=== PATIENT | female | born 1945 | race Caucasian/White ===

== ENCOUNTER → 2016-02-18 | Outpatient (CLI) | payer OTHER, MEDICARE ==
[~2016-02-18] MED LIST: ACET1TAB84 PO; BUPRTAB51 PO; CALCTAB5 PO; CHOL2000 PO; CLR10 PO; FLAX100024 PO; METO50TA16 PO; MISCCAP80 PO; RSTOPS OP; SIMV40TA2 PO; TOPI200T14 PO
--- NOTE | 2016-02-18 10:57 | Discharge Instructions ---
Discharge Instructions Procedure Procedure Date: Feb 18, 2016. Reason for visit: Left Calcifications. Discharge Discharge Date: Feb 18, 2016. Discharge Diagnosis: status post breast biopsy Instructions Activity Recommendations: Additional Limitations (see below) Return to School/Work: no limitations Recommended Home Diet: No Limitations Provider Instructions: ACTIVITY RECOMMENDATIONS: * No lifting, pushing, pulling or exercising the affected side for three days. RETURN TO SCHOOL/WORK: * You may return to work/school after the procedure, but do not perform any strenuous activities for 24 to 48 hours. MEDICATIONS: * Tylenol (two 325 mg) every four to six hours if needed for mild pain (if not allergic to Tylenol). DIET: * Resume previous diet. SPECIAL CARE INSTRUCTIONS: * Keep biopsy site dry for 24 hours. May shower after 24 hours, but do not soak (bathe) incision. * May remove Tegaderm (plastic patch) tomorrow AFTER showering. * Leave the steri-strips on for one week. Allow the steri-strips to fall off by themselves. If not off after one week, you may remove them. You may place a Bandaid crosswise over the strips, if desired. * Apply ice 10 minutes on and 10 minutes off as needed. * Wear a bra at bedtime to sleep more comfortably for 2-3 days. * Your referring physician should have the results after approximately 5 to 7 business days. * Call for unusual bleeding, fever, drainage, etc or if you have any questions call during normal business hours or after hours call Dr Juarez, [phone]. FOLLOW UP VISIT: Follow-up with Referring Physician as scheduled. Allergies Coded Allergies: Azithromycin (Verified Allergy, Unknown, ., 09/20/14) Cephalosporins (Verified Allergy, Unknown, ., 09/20/14) Codeine (Verified Allergy, Unknown, ., 09/20/14) Erythromycin (Verified Allergy, Unknown, ., 09/20/14) Sulfa Drugs (Verified Allergy, Unknown, ., 09/20/14) Shannon Nicholas Recommendations: Call your doctor if: * Temperature above 101 degrees * Pain not relieved by pain medicine ordered * There is increased drainage or redness from any incision * You have any unanswered questions or concerns. Your Doctors Instructions noted above were prepared by provider Camryn Juarez. Patient Signature Section: Patient Instructions Signature Page Kimberly Rascon Patient (or Guardian) Signature/Date: I have read and understand the instructions given to me by my caregivers. Caregiver/RN/Doctor Signature/Date: The above-named patient and/or guardian has received patient instructions on this date. + Original Patient Signature Page (only) stays with chart. Please make copy for patient.
--- NOTE | 2016-02-18 12:39 | MAMMOGRAPHY REPORT ---
STEREOTACTIC GUIDED BIOPSY LEFT BREAST: 02/18/2016 CLINICAL HISTORY: Left lower inner quadrant calcifications. PATIENT CONSENT: The procedure, risks, benefits, and alternatives of stereotactic biopsy with clip p nisa were discussed with the patient, and verbal and written consent was obtained. A timeout wa s performed immediately prior to the procedure. PROCEDURE DESCRIPTION: With stereotactic guidance, aseptic technique, and lidocaine as a local anest hetic (1% lidocaine to anesthetize the skin and 1% lidocaine with epinephrine to anesthetize the gianna per tissues), the area of concern was sampled multiple times with a 9-gauge vacuum-assisted biopsy n eedle ([employer]). The path of approach was caudocranial. The specimen radiograph demonstrates c alcifications to be present in the samples. A metallic marker clip was placed at the biopsy site. This was confirmed on postprocedure mammograms. Direct pressure was applied at the biopsy site and hemostasis was readily achieved. The patient tolerated the procedure without complication. She was given wound care instructions. COMPARISON: Comparison is made to exams dated: 02/06/2016 mammogram, 02/06/2016 ultrasound, 016 mammogram, 01/20/2015 mammogram - [facility], 01/18/2014 mammogram, and 3 mammogram. IMPRESSION: STEREOTACTIC GUIDED BIOPSY Stereotactic biopsy of indeterminate calcifications in the left lower inner quadrant, with clip plac pedro. The patient will receive pathology results from her referring physician. Camryn Juarez M.D. /:02/18/2016 10:58:44 Blank Driller: Sonali Rosales, [facility]
--- NOTE | 2016-02-18 12:39 | MAMMOGRAPHY REPORT ---
UNILATERAL LEFT DIGITAL DIAGNOSTIC MAMMOGRAM: 02/18/2016 CLINICAL HISTORY: Status post stereotactic biopsy of left lower inner quadrant calcifications. TECHNIQUE: Postprocedural left CC and ML views were obtained. COMPARISON: Comparison is made to exams dated: 02/06/2016 mammogram, 01/20/2015 mammogram - [facility], 01/18/2014 mammogram, 01/19/2013 mammogram, and 01/18/2012 mammogram. BREAST COMPOSITION: There are scattered areas of fibroglandular density in the left breast. FINDINGS: A new biopsy marker clip is seen within the left lower inner quadrant at the site of the biopsied calcifications. No significant postbiopsy hematoma is seen. IMPRESSION: POST PROCEDURE IMAGING FOR MARKER PLACEMENT New biopsy marker clip status post stereotactic biopsy of left lower inner quadrant calcifications. Pathology results are pending. Approximately 10% of breast cancers are not detected with mammography. A negative mammographic repor t should not delay biopsy if a clinically suggestive mass is present. Camryn Juarez M.D. ah/:02/18/2016 11:17:39 Social Work Program Coordinator: Sonali Rosales, [facility] BI-RADS Code: Post Procedure Imaging For Marker Placement
== END | disposition home or self-care (01) ==
LOC: C.MAMM 10:17
PROVIDERS: ATTEND Obstetrics & Gynecology
DX: D24.2 Benign neoplasm of left breast (principal); R92.0 Mammographic microcalcification found on diagnostic imaging of breast

== ENCOUNTER → 2016-04-23 | Outpatient (CLI) | payer OTHER, MEDICARE ==
[~2016-04-23] VITALS: Ht 167.6 cm; Wt 194.2 kg
[2016-04-23 15:14] VITALS: BP 126/56; PULSE 76; Ht 167.6 cm; Wt 194.2 kg
== END | disposition home or self-care (01) ==
LOC: C.NEUR 14:53
PROVIDERS: ATTEND Internal Medicine Pulmonary Disease
DX: G47.31 Primary central sleep apnea (principal)

== ENCOUNTER → 2016-05-13 | Outpatient (CLI) | payer OTHER, MEDICARE | END | disposition home or self-care (01) | LOC: C.PAPS 10:06 | PROVIDERS: ATTEND Obstetrics & Gynecology | DX: Z01.419 Encounter for gynecological examination (general) (routine) without abnormal findings (principal) ==

== ENCOUNTER → 2016-06-30 | Outpatient (CLI) | payer OTHER, MEDICARE | END | disposition home or self-care (01) | LOC: C.RDSM 14:54 | PROVIDERS: ATTEND Physical Medicine & Rehabilitation Sports Medicine | DX: Z96.651 Presence of right artificial knee joint (principal) ==

== ENCOUNTER → 2017-03-16 | Outpatient (CLI) | payer OTHER, MEDICARE ==
--- NOTE | 2017-03-17 14:33 | MAMMOGRAPHY REPORT ---
BILATERAL DIGITAL SCREENING MAMMOGRAM TOMOSYNTHESIS WITH CAD: 03/16/2017 CLINICAL HISTORY: Routine screening. Patient has no complaints. TECHNIQUE: Breast tomosynthesis in addition to standard 2D mammography was performed. Current study was also evaluated with a Computer Aided Detection (CAD) system. COMPARISON: Comparison is made to exams dated: 02/18/2016 mammogram, 02/18/2016 stereotactic biopsy, ultrasound, 02/06/2016 mammogram, and 01/20/2015 mammogram - [facility]. BREAST COMPOSITION: There are scattered areas of fibroglandular density in both breasts. FINDINGS: No suspicious masses, calcifications, or areas of architectural distortion are noted in ei ther breast. There has been no significant interval change compared to prior exams. There are stable postsurgical changes in bilateral breasts. Linear scar markers denote bilateral scars. Bilateral a symmetries and benign-appearing masses as well as scattered bilateral benign-appearing calcifications are not significantly changed. A biopsy marker clip is noted within the left breast from prior ster eotactic biopsy. IMPRESSION: ACR BI-RADS CATEGORY 2: BENIGN There is no mammographic evidence of malignancy. A 1 year screening mammogram is recommended. The pa tient will receive written notification of the results. Approximately 10% of breast cancers are not detected with mammography. A negative mammographic report should not delay biopsy if a clinically suggestive mass is present. Camryn Juarez M.D. ah/:03/16/2017 15:53:16 Telemedicine Physician: Promise HARRISON)([place]), [facility] letter sent: Normal 1/2 BI-RADS Code: ACR BI-RADS Category 2: Benign
== END | disposition home or self-care (01) ==
LOC: C.MAMM 14:37
PROVIDERS: ATTEND Obstetrics & Gynecology
DX: Z12.31 Encounter for screening mammogram for malignant neoplasm of breast (principal)

== ENCOUNTER → 2017-05-16 | Outpatient (CLI) | payer OTHER, MEDICARE | END | disposition home or self-care (01) | LOC: C.MAMM 15:37 | PROVIDERS: ATTEND Obstetrics & Gynecology | DX: M85.89 Other specified disorders of bone density and structure, multiple sites (principal) ==

== ENCOUNTER → 2017-05-16 | Outpatient (CLI) | payer OTHER, MEDICARE | END | disposition home or self-care (01) | LOC: C.PAPS 14:47 | PROVIDERS: ATTEND Obstetrics & Gynecology | DX: Z12.4 Encounter for screening for malignant neoplasm of cervix (principal) ==

== ENCOUNTER → 2017-06-17 | Outpatient (CLI) | payer OTHER, MEDICARE ==
[~2017-06-17] VITALS: Ht 167.6 cm; Wt 32.9 kg
[2017-06-17 14:56] VITALS: BP 127/79; PULSE 67; Ht 167.6 cm; Wt 32.9 kg
== END | disposition home or self-care (01) ==
LOC: C.NEUR 14:35
PROVIDERS: ATTEND Internal Medicine Pulmonary Disease
DX: G47.33 Obstructive sleep apnea (adult) (pediatric) (principal); G47.31 Primary central sleep apnea

== ENCOUNTER 2020-09-17 20:37 | Observation (INO) ==
[2020-09-17 21:19] LABS: Basophils # (auto) 0.08 K/uL (0-0.2); Eosinophils # (auto) 0.25 K/uL (0-0.5); Eosinophils % (auto) 3.2 %; Hematocrit (blood only) 40.1 % (37-47); Immature Granulocytes # (auto) 0.02 K/uL (0.00-0.02); Immature Granulocytes % (auto) 0.3 %; Lymphocytes # (auto) 1.65 K/uL (1.2-3.4); Lymphocytes % (auto) 21.3 %; Mean Corpuscular Hemoglobin 30.3 pg (25-34); Mean Corpuscular Hgb Conc 32.4 g/dL (32-36); Mean Corpuscular Volume 93.5 fL (80-100); Mean Platelet Volume 11.4 fL (7.4-10.4); Monocytes # (auto) 0.85 K/uL (0.11-0.59); Neutrophils # (auto) 4.91 K/uL (1.4-6.5); Neutrophils % (auto) 63.2 %; Platelet Count 227 K/uL (130-400); RDW Coefficient of Variation 13.6 % (11.5-14.5); RDW Standard Deviation 46.4 fL (36.4-46.3); Red Blood Count 4.29 M/uL (4.2-5.4); White Blood Count 7.76 K/uL (4.8-10.8)
[2020-09-17 21:29] LABS: Partial Thromboplastin Ratio 0.9
--- NOTE | 2020-09-17 21:37 | Emergency Department Note ---
History of Present Illness General Chief Complaint: Illness Stated Complaint: SOB, NAUSEA, CHEST PAIN Time Seen by Provider: 09/17/20 20:53 Source: patient Mode of arrival: ambulatory Limitations: no limitations History of Present Illness Provider Complaint: shortness of breath and chest pain Onset (ago): minute(s) Severity: moderate Maximum Pain Intensity: 5 Relieved By: + nothing Exacerbated By: + nothing Context: no recent illness Associated symptoms: + chest pain; no fever, no wheezing, no sputum production, no palpitations, no hemoptysis, no syncope or no abdominal pain Treatment prior to arrival: none Home Medications Medication Instructions Recorded Confirmed Type bupropion HCl 300 mg 24 hr tablet, 300 mg PO QAM 12/26/18 09/17/20 History extended release cyclosporine 0.05 % eye drops in a 1 drops OP Q12H 12/26/18 09/17/20 History dropperette (Restasis) mecobalamin (vitamin B12) 1,000 1,000 mcg PO DAILY 07/18/19 09/17/20 History mcg chewable tablet rosuvastatin 5 mg tablet 5 mg PO QPM 07/18/19 09/17/20 History cromolyn 5.2 mg/spray (4 %) nasal 1 sprays INTNAS DAILY ml 07/20/19 09/17/20 History spray (Nasalcrom) amlodipine 10 mg tablet 10 mg PO DAILY 07/01/20 09/17/20 History lisinopril 20 mg tablet 20 mg PO DAILY 07/01/20 09/17/20 History Lactobacillus acidophilus 10 10,000 mmu cells PO DAILY 09/17/20 09/17/20 History billion cell capsule (Probiotic) Nmn 125 mg PO DAILY 09/17/20 09/17/20 History acetaminophen 650 mg 650 mg PO Q12H PRN 09/17/20 09/17/20 History tablet,extended release ascorbic acid (vitamin C) 1,000 mg 1 g PO DAILY 09/17/20 09/17/20 History tablet (Vitamin C) cholecalciferol (vitamin D3) 125 125 mcg PO DAILY 09/17/20 09/17/20 History mcg (5,000 unit) tablet (Vitamin D3) levothyroxine 75 mcg tablet 75 mcg PO DAILYBB 09/17/20 09/17/20 History nettle-pygeum africanum 300 mg-25 1 cap PO DAILY 09/17/20 09/17/20 History mg capsule topiramate 200 mg tablet 200 mg PO QPM 09/17/20 09/17/20 History Allergies Allergy/AdvReac Type Severity Reaction Status Date / Time Cephalosporins Allergy Unknown Hives Verified 09/17/20 22:15 codeine Allergy Unknown Unknown Verified 09/17/20 22:15 erythromycin base Allergy Unknown Unknown Verified 09/17/20 22:15 Sulfa (Sulfonamide Allergy Unknown Hives Verified 09/17/20 22:15 Antibiotics) Influenza Virus Vaccines Allergy Anaphylaxis Verified 09/18/20 01:30 oxycodone AdvReac Severe hallucinati Verified 09/17/20 22:15 on azithromycin AdvReac Nausea Verified 09/18/20 01:31 Past Med/Surg History Medical History Adrenal gland cyst Bipolar disorder Breast cancer 10 YEARS AGO - LUMPECTOMY + RADIATION Chest pain at rest Dyslipidemia Family history of ischemic heart disease GERD (gastroesophageal reflux disease) Hearing deficit BL GARCIA Hepatic cyst History of skin cancer 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 HLD (hyperlipidemia) HTN (hypertension) HTN (hypertension) Hypothyroidism Kidney stones Limb alert care status Restricted RUE Osteoarthritis Osteopenia Sleep apnea CPAP Surgical History H/O lithotripsy Right URS, laser lithotripsy, and stent placement 08/13/19 History of colonoscopy History of D&C History of partial hysterectomy History of removal of cyst benign cysts removed from breast x 3 History of right knee joint replacement History of tonsillectomy Status post breast lumpectomy Rt Family History Family/Other Coronary heart disease Cancer Hypertension Other No family history of adverse response to anesthesia Social History Smoking Status: Never smoker Second Hand Exposure: No; Hx Alcohol Use: No Hx Substance Use: No Preferred Language: Arabic Communication Ability: Effective It Programmer Required: No Beliefs That Will Affect Care: None marital status: Current Living Situation: Alone current occupational status: retired Other Information That Helps Us Care for You: No Feels Safe at Home: Yes Safety Concerns: Feels Safe At This Time Assistive Devices: CPAP Physical Exam Vital Signs: Vital Signs - 24 hr 09/17/20 20:37 09/17/20 20:49 09/17/20 21:24 Temperature 36.5 C Temperature Source Temporal Artery Sc an Pulse Rate 117 H 91 H Respiratory Rate 18 15 Respiratory Effort / Characteristics Non-Labored Sponta neous Respiratory Depth Normal Respiratory Patter n Regular Blood Pressure 160/87 H 154/76 H Blood Pressure Araseli n 111 102 Blood Pressure Pos ition Sitting Pulse Oximetry 98 100 99 Oxygen Delivery Me thod Room Air Room Air Sepsis Recent Feve r Within 48 Hours No Sepsis New/Unexpla ined Change in Men louis Status No Sepsis Action Take n by Nursing No Action Required 09/17/20 21:30 09/17/20 22:30 09/17/20 23:00 Temperature Temperature Source Pulse Rate 93 H 96 H 104 H Respiratory Rate 15 17 13 Respiratory Effort / Characteristics Respiratory Depth Respiratory Patter n Blood Pressure 137/84 137/78 151/81 H Blood Pressure Araseli n 101 97 104 Blood Pressure Pos ition Pulse Oximetry 99 98 99 Oxygen Delivery Me thod Sepsis Recent Feve r Within 48 Hours Sepsis New/Unexpla ined Change in Men louis Status Sepsis Action Take n by Nursing 09/17/20 23:30 Temperature Temperature Source Pulse Rate 101 H Respiratory Rate 17 Respiratory Effort / Characteristics Respiratory Depth Respiratory Patter n Blood Pressure 149/83 H Blood Pressure Araseli n 105 Blood Pressure Pos ition Pulse Oximetry 99 Oxygen Delivery Me thod Sepsis Recent Feve r Within 48 Hours Sepsis New/Unexpla ined Change in Men louis Status Sepsis Action Take n by Nursing Physical Exam: GENERAL: Mildly anxious in appearance, wearing a mask. EYE EXAM: Normal conjunctiva. PERRL, no anisocoria and EOM's grossly intact w/o pain. NECK: Supple, no nuchal rigidity, no adenopathy, non-tender. No signs of meningismus. LUNGS: Clear to auscultation. Normal chest wall mechanics. HEART: NSR, no MRG. ABDOMEN: Abdomen soft, non-tender, normo-active bowel sounds, no masses, no rebound or guarding. BACK: No CVA TTP. SKIN: No rashes and no bruising. UPPER EXTREMITIES: Upper extremities are grossly normal. LOWER EXTREMITIES: Grossly normal, no edema. Negative Homans' sign bilaterally. NEURO EXAM: A&O x3, cranial nerves II-XII grossly intact, normal speech, moves all 4 extremities on command w/o issue. Course Course Cardiac monitoring: An order was placed for continuous cardiac monitoring. The monitor shows a rate of 83 with sinus rhythm. Administered Medications Discontinued Medications Amlodipine Besylate (Amlodipine Besylate 5 Mg Tab) 10 mg PO DAILY LAUREN Stop: 10/18/20 08:59 Last Admin: 09/18/20 08:19 Dose: 10 mg Documented by: [id number] Ascorbic Acid (Ascorbic Acid 500 Mg Tab) 1,000 mg PO DAILY LAUREN Stop: 10/18/20 08:59 Last Admin: 09/18/20 08:20 Dose: Not Given Documented by: [id number] Bupropion HCl (Bupropion Xl 300 Mg Tabcr) 300 mg PO QAM LAUREN Stop: 10/18/20 08:59 Last Admin: 09/18/20 08:18 Dose: 300 mg Documented by: [id number] Cyanocobalamin (Cyanocobalamin 500 Mcg Tablet (Vitamin B-12)) 1,000 mcg PO DAILY [facility]; Protocol Stop: 10/18/20 08:59 Last Admin: 09/18/20 08:21 Dose: Not Given Documented by: [id number] Enoxaparin Sodium (Enoxaparin Inj 40 Mg/0.4 Ml Syr) 40 mg SQ QAM LAUREN Stop: 10/18/20 08:59 Last Admin: 09/18/20 08:21 Dose: Not Given Documented by: [id number] Ioversol (Optiray 320 125ml) 119 ml IV ONCE ONE Stop: 09/17/20 21:53 Last Admin: 09/17/20 21:52 Dose: 119 ml Documented by: [id number] Lactobacillus Acidoph/Casei/Rhamnos (Advanced Probiotic 1250 Mg Capsule) 2 cap PO DAILY [facility]; Protocol Stop: 10/18/20 08:59 Last Admin: 09/18/20 08:21 Dose: Not Given Documented by: [id number] Levothyroxine Sodium (Levothyroxine Sodium 75 Mcg Tablet) 75 mcg PO DAILYBB [facility] Stop: 10/18/20 06:29 Last Admin: 09/18/20 05:58 Dose: 75 mcg Documented by: [id number] Lisinopril (Lisinopril 20 Mg Tab) 20 mg PO NOW STA Stop: 09/18/20 01:54 Last Admin: 09/18/20 02:05 Dose: 20 mg Documented by: [id number] Miscellaneous (Cromolyn: Order Awaiting Action) 1 ea N/A QS LAUREN Stop: 10/18/20 07:59 Last Admin: 09/18/20 08:15 Dose: Not Given Documented by: [id number] Miscellaneous (Restasis: Order Awaiting Action) 1 ea N/A QS LAUREN Stop: 10/18/20 07:59 Last Admin: 09/18/20 08:16 Dose: Not Given Documented by: [id number] Rosuvastatin Calcium (Rosuvastatin Calcium 5 Mg Tab) 5 mg PO NOW STA Stop: 09/18/20 01:53 Last Admin: 09/18/20 02:05 Dose: 5 mg Documented by: [id number] Topiramate (Topiramate 100 Mg Tab) 200 mg PO NOW STA Stop: 09/18/20 01:53 Last Admin: 09/18/20 02:05 Dose: 200 mg Documented by: [id number] Vitamin D (Cholecalciferol 1,000 Units 25 Mcg Tab) 5,000 units PO DAILY LAUREN Stop: 10/18/20 08:59 Last Admin: 09/18/20 08:21 Dose: Not Given Documented by: [id number] Medical Decision Making Differential Diagnosis Reactive airway disease, pneumonia, pneumothorax, COPD, CHF, infections, cardiac ischemia, pulmonary embolism, musculoskeletal, gastrointestinal, as well as other pathologies. Medical Records Attestation: I reviewed the patient's medical records. Home Medications Current Medication List: was personally reviewed by me Laboratory Data Attestation: I reviewed the patient's lab results. Result diagrams: 09/18/20 05:18 09/18/20 05:18 Lab Results 09/17/20 09/17/20 09/17/20 Range/Units 20:58 20:58 20:58 WBC 7.76 (4.8-10.8) K/uL RBC 4.29 (4.2-5.4) M/uL Hgb 13.0 (12.0-16.0) g/dL Hct 40.1 (37-47) % MCV 93.5 (80-100) fL MCH 30.3 (25-34) pg MCHC 32.4 (32-36) g/dL RDW Std Deviation 46.4 H (36.4-46.3) fL RDW Coeff of Himanshu 13.6 (11.5-14.5) % Plt Count 227 (130-400) K/uL MPV 11.4 H (7.4-10.4) fL Immature Gran % (Auto) 0.3 % Neut % (Auto) 63.2 % Lymph % (Auto) 21.3 % Jay % (Auto) 11.0 % Eos % (Auto) 3.2 % Baso % (Auto) 1.0 % Neut # (Auto) 4.91 (1.4-6.5) K/uL Lymph # (Auto) 1.65 (1.2-3.4) K/uL Jay # (Auto) 0.85 H (0.11-0.59) K/uL Eos # (Auto) 0.25 (0-0.5) K/uL Baso # (Auto) 0.08 (0-0.2) K/uL Immature Gran # (Auto) 0.02 (0.00-0.02) K/uL APTT 24.0 (21.0-31.0) Seconds PTT Ratio 0.9 Sodium 140 (136-145) mmol/L Potassium (3.5-5.1) mmol/L Chloride 112 H (98-107) mmol/L Carbon Dioxide 24 (21-32) mmol/L Anion Gap 5.0 (3-11) BUN 17 (7-18) mg/dl Creatinine 0.75 (0.6-1.2) mg/dl Est Cr Clr Drug Dosing Not Reportable Est GFR ( Amer) 91.7 ml/min Est GFR (Non-Af Amer) 79.1 ml/min BUN/Creatinine Ratio 22.5 H (10-20) Glucose 93 (70-99) mg/dl Calcium 9.0 (8.5-10.1) mg/dl Total Bilirubin 0.2 (0.2-1) mg/dl AST (15-37) U/L ALT 22 (12-78) U/L Alkaline Phosphatase 129 H (45-117) U/L Troponin I < 0.015 (0-0.045) ng/ml Total Protein 7.7 (6.4-8.2) gm/dl Albumin 3.7 (3.4-5.0) gm/dl Globulin 4.0 (2.5-4.0) gm/dl Albumin/Globulin Ratio 0.9 (0.9-2) Lipase 138 (73-393) U/L COVID-19 Eval Order SARS-CoV-2 (PCR) (Negative) 09/17/20 09/17/20 Range/Units 23:36 23:36 WBC (4.8-10.8) K/uL RBC (4.2-5.4) M/uL Hgb (12.0-16.0) g/dL Hct (37-47) % MCV (80-100) fL MCH (25-34) pg MCHC (32-36) g/dL RDW Std Deviation (36.4-46.3) fL RDW Coeff of Himanshu (11.5-14.5) % Plt Count (130-400) K/uL MPV (7.4-10.4) fL Immature Gran % (Auto) % Neut % (Auto) % Lymph % (Auto) % Jay % (Auto) % Eos % (Auto) % Baso % (Auto) % Neut # (Auto) (1.4-6.5) K/uL Lymph # (Auto) (1.2-3.4) K/uL Jay # (Auto) (0.11-0.59) K/uL Eos # (Auto) (0-0.5) K/uL Baso # (Auto) (0-0.2) K/uL Immature Gran # (Auto) (0.00-0.02) K/uL APTT (21.0-31.0) Seconds PTT Ratio Sodium (136-145) mmol/L Potassium (3.5-5.1) mmol/L Chloride (98-107) mmol/L Carbon Dioxide (21-32) mmol/L Anion Gap (3-11) BUN (7-18) mg/dl Creatinine (0.6-1.2) mg/dl Est Cr Clr Drug Dosing Est GFR ( Amer) ml/min Est GFR (Non-Af Amer) ml/min BUN/Creatinine Ratio (10-20) Glucose (70-99) mg/dl Calcium (8.5-10.1) mg/dl Total Bilirubin (0.2-1) mg/dl AST (15-37) U/L ALT (12-78) U/L Alkaline Phosphatase (45-117) U/L Troponin I (0-0.045) ng/ml Total Protein (6.4-8.2) gm/dl Albumin (3.4-5.0) gm/dl Globulin (2.5-4.0) gm/dl Albumin/Globulin Ratio (0.9-2) Lipase (73-393) U/L COVID-19 Eval Order Covid19 at [facility] SARS-CoV-2 (PCR) NEGATIVE (Negative) Imaging Data Radiologist's Impression: Chest CTA 09/17/20 20:54 CT ANGIOGRAPHY OF THE CHEST, PULMONARY EMBOLUS PROTOCOL CLINICAL HISTORY: Chest Pain, eval for PE COMPARISON STUDY: Chest radiograph September 02, 2015. TECHNIQUE: Following IV administration of 119 mL of Optiray, helical axial images of the chest were obtained utilizing the pulmonary embolus protocol. Maximal intensity projections and sagittal and coronal reformats were viewed on an independent 3D workstation. IV contrast was administered without complication. Automated exposure control was utilized for the study. A dose lowering technique was utilized adhering to the principles of ALARA. CT DOSE: 398.78 mGy.cm FINDINGS: No pulmonary emboli are identified. There is no thoracic aortic dissection. Size of the heart is normal. There is no pericardial effusion. No enlarged thoracic lymph nodes are noted. There is evidence for previous a granulomatous process with calcified thoracic lymph nodes and calcified granulomas within the lungs. There is a small hiatal hernia. Biapical scarring is noted. There is no pneumothorax or pleural effusion. There is no consolidation to suggest pneumonia. A left adrenal nodule is unchanged since prior CT. This is benign. IMPRESSION: 1. No pulmonary emboli identified. 2. No acute process within the chest. 3. Small hiatal hernia. ACT 112: Negative or not required by law. Electronically signed by: Km Tineo M.D. 09/18/2020 7:30 AM ECG Data Attestation: I personally reviewed and interpreted this ECG as follows: Interpretation: Sinus tachycardia, rate of 108, normal intervals, normal axis, no obvious ST changes MDM Narrative Patient was seen due to concern for chest pain and shortness of breath. The patient does have some exertional symptoms although the chest pain is left-sided sharp and not currently present. The patient does admit to feeling anxious. Patient is a family history of heart attack in her mother before the age of 65. Patient is a non-smoker no history of DVT or PE. No recent surgeries or procedures. Blood works obtained along with a CT angiography of the chest. EKG with no obvious signs of ischemia. Patient blood work is grossly unremarkable with a negative troponin. Patient's CT does not show any obvious PE although it is slightly motion degraded. Initial troponin negative. Patient did undergo an ambulatory trial and was quite dyspneic although not hypoxic. Given this concern I did recommend the patient stay for further observation and treatment. The patient is amenable to this. I did speak with the on-call hospitalist Dr. Lau and the patient was admitted to the medicine service. Impression & Plan Dyspnea, Chest pain Discharge Plan Visit Data Chief Complaint: Illness Stated Complaint: SOB, NAUSEA, CHEST PAIN ED Provider: Tapan Wong Discharge Problem: Dyspnea, Chest pain Patient Disposition: Admitted As Inpatient Discharge Instructions Interventions: ED Discharge Assessment Last Done: 09/18/20 01:06
[2020-09-17 21:42] LABS: Alanine Aminotransferase 22 U/L (12-78); Albumin Globulin Ratio 0.9 (0.9-2); Albumin Level 3.7 gm/dl (3.4-5.0); Alkaline Phosphatase 129 U/L (45-117); BUN Creatinine Ratio 22.5 (10-20); Bilirubin,Total 0.2 mg/dl (0.2-1); Blood Urea Nitrogen 17 mg/dl (7-18); Carbon Dioxide 24 mmol/L (21-32); Chloride 112 mmol/L (98-107); Est GFR (African American) 91.7 ml/min; Est GFR (Non-African American) 79.1 ml/min; Glucose 93 mg/dl (70-99); Lipase 138 U/L (73-393); Sodium 140 mmol/L (136-145); Total Protein 7.7 gm/dl (6.4-8.2); Troponin I < 0.015 ng/ml (0-0.045)
[2020-09-17] MEDS ORDERED: OPTIRAY 320 125ml IV ONE (21:52)
--- NOTE | 2020-09-18 00:55 | History and Physical Report ---
DATE OF ADMISSION: 09/17/2020. CHIEF COMPLAINT: Chest pain and shortness of breath. HISTORY OF PRESENT ILLNESS: A 74-year-old female with past medical history significant for hyperlipidemia; history of multinodular goiter; history of Daphne's thyroiditis; obstructive sleep apnea, on CPAP; irritable bowel syndrome; GERD; history of actinic keratosis; bipolar II disorder; history of carcinoma of the breast; history of nonmelanoma skin cancer, who lives alone, presents with chest pain and shortness of breath. Initially, she had some shortness of breath while ambulating and she sat on the chair and around 7:30 p.m. she noticed left-sided chest pain, some pressure-like feeling of about 5/10 in severity, no radiation. Around 8:30 p.m., she called her daughter and she was brought into the hospital. Currently, the patient is chest pain free. In the ER, they tried to ambulate her and again she felt short of breath. CT of the chest was done, there was no PE. Because of ongoing symptoms, called for admission. Currently, resting comfortably and hemodynamically stable. Currently, no shortness of breath. When she had symptoms, she felt nausea, that has improved now. She has some mild headache, no dizziness, no blurred visions, no earache. Has some mild runny nose, but that is chronic. Has chronic dry cough on and off for several months. She has worked up for her cough with Prilosec for a couple of months, didn't helped, and she states she also had endoscopy, which was also unremarkable. Denies any abdominal pain. Normal bowel movements. No blood in the stool or black stools. She says she is currently frequently micturating, but denies any hematuria or burning micturition. She has chronic mild swelling in the lower extremity. Since she had her right knee arthroplasty, she is using a cane to ambulate. Appetite is okay. No dysphagia. ALLERGIES: CEPHALOSPORINS, CODEINE, ERYTHROMYCIN BASE, SULFA ANTIBIOTICS, AZITHROMYCIN, OXYCODONE, INFLUENZA VIRUS WHOLE VACCINE, ZITHROMAX. PAST MEDICAL HISTORY: As mentioned above. PAST SURGICAL HISTORY: Knee arthroplasty, colonoscopy, EGD, partial hysterectomy, and removal of lingual tonsil. MEDICATIONS: The patient is on Tylenol Arthritis 650 mg p.o. q. 12 hours p.r.n., amlodipine 10 mg p.o. daily, ascorbic vitamin C 1 gram p.o. daily, bupropion extended release 300 mg p.o. daily, vitamin D 125 mcg p.o. daily, cromolyn nasal spray daily, cyclosporine eyedrops q. 12 hours, probiotic 1 capsule daily, levothyroxine 75 mcg p.o. daily, lisinopril 20 mg p.o. daily, vitamin B12 1000 mcg p.o. daily, Topamax 200 mg p.o. daily, Crestor 5 mg p.o. at bedtime. FAMILY HISTORY: Significant for mother had breast cancer, father has heart disorder, mother has heart attack. SOCIAL HISTORY: Currently lives alone. Daughter lives close by. No smoking. Alcohol rarely. No drug use. REVIEW OF SYSTEMS: As per HPI. Rest of review of systems is negative. PHYSICAL EXAMINATION: GENERAL: The patient is of moderate build, not in acute distress. VITAL SIGNS: Temperature 36.5, pulse 102, respiratory rate 21, blood pressure 135/72, oxygen 98% on room air. HEENT: Pupils equal, round and reactive to light. Oral mucosa moist. NECK: No JVD. No neck masses. No carotid bruits. CARDIOVASCULAR: S1 and S2 heard, regular rate and rhythm. No murmur, no gallop. RESPIRATORY SYSTEM: Normal AP diameter. No accessory muscle use. No wheezing, no crackles. ABDOMEN: Soft, bowel sounds present, nontender, no distention. CENTRAL NERVOUS SYSTEM: Cranial nerves II-XII grossly intact, nonfocal. EXTREMITIES: Some pedal edema present, no erythema seen. LABORATORY DATA: WBC 7.7, hemoglobin 13, hematocrit 40.1, platelets 227. APTT 24. Sodium 140, chloride 112, CO2 of 24, BUN 17, creatinine 0.75, serum glucose 93, calcium 9, total bilirubin 0.2, ALT 22, alkaline phosphatase 129. Troponin I less than 0.015. Lipase 138. IMAGING DATA: CT of the chest, no PE on the preliminary report. EKG: Sinus tachycardia at a rate of 108, possible left atrial enlargement, Q- waves in the lateral leads. ASSESSMENT AND PLAN: This is a 74-year-old female who presents with chest pain. 1. Chest pain: Rule out acute coronary syndrome. EKG shows Q-waves in lateral leads. Troponin is negative. Currently asymptomatic. She also had shortness of breath on exertion and CT of chest was unremarkable. We will follow the final report of the CT of chest. We will follow serial enzymes, echocardiogram. Keep her n.p.o. and consult cardiology in the a.m. for further recommendation. Monitor in the [facility]. 2. History of hypertension: Continue her amlodipine, lisinopril. We will monitor the blood pressure. 3. History of bipolar disorder: Continue her Topamax and bupropion. 4. Hyperlipidemia: Continue statin. 5. Hypothyroidism: Continue Synthroid. 6. Obstructive sleep apnea: On CPAP at bedtime. 7. Deep venous thrombosis prophylaxis: Sequential compression devices for now. DISPOSITION: Observation in [facility]. PT/OT prior to discharge. Social service to help with discharge planning. Job ID: [id number]
[2020-09-18] MEDS ORDERED: ACETAMINOPHEN 325 MG TAB PO PRN (01:26)
[2020-09-18] MEDS ORDERED: NITROGLYCERIN SL 0.4 MG/TAB TAB SL PRN (01:26)
[2020-09-18] MEDS ORDERED: ROSUVASTATIN CALCIUM 5 MG TAB PO STA (01:52)
[2020-09-18] MEDS ORDERED: TOPIRAMATE 100 MG TAB PO STA (01:52)
[2020-09-18] MEDS ORDERED: lisinopril 20 MG TAB PO STA (01:53)
[2020-09-18 06:23] LABS: Basophils # (auto) 0.04 K/uL (0-0.2); Basophils % (auto) 0.5 %; Eosinophils # (auto) 0.24 K/uL (0-0.5); Eosinophils % (auto) 3.2 %; Hemoglobin 14.6 g/dL (12.0-16.0); Immature Granulocytes # (auto) 0.03 K/uL (0.00-0.02); Immature Granulocytes % (auto) 0.4 %; Lymphocytes # (auto) 1.63 K/uL (1.2-3.4); Mean Corpuscular Hgb Conc 31.7 g/dL (32-36); Mean Corpuscular Volume 91.5 fL (80-100); Mean Platelet Volume 12.2 fL (7.4-10.4); Monocytes # (auto) 0.89 K/uL (0.11-0.59); Neutrophils # (auto) 4.58 K/uL (1.4-6.5); Neutrophils % (auto) 61.9 %; Platelet Count 164 K/uL (130-400); RDW Coefficient of Variation 13.6 % (11.5-14.5); RDW Standard Deviation 44.9 fL (36.4-46.3); Red Blood Count 5.03 M/uL (4.2-5.4); White Blood Count 7.41 K/uL (4.8-10.8)
[2020-09-18] MEDS ORDERED: LEVOTHYROXINE SODIUM 75 MCG TABLET PO SCH (06:30)
[2020-09-18 06:33] LABS: BUN Creatinine Ratio 31.3 (10-20); Blood Urea Nitrogen 18 mg/dl (7-18); Calcium 9.2 mg/dl (8.5-10.1); Carbon Dioxide 22 mmol/L (21-32); Chloride 113 mmol/L (98-107); Creatinine Clr Calc Pharmacy 95.9 ml/min; Est GFR (Non-African American) 91.4 ml/min; Glucose 96 mg/dl (70-99); Magnesium 2.7 mg/dl (1.8-2.4); Potassium 3.7 mmol/L (3.5-5.1); Sodium 140 mmol/L (136-145)
[2020-09-18 06:38] LABS: Troponin I < 0.015 ng/ml (0-0.045)
--- NOTE | 2020-09-18 07:31 | CT Scan Report ---
CT ANGIOGRAPHY OF THE CHEST, PULMONARY EMBOLUS PROTOCOL CLINICAL HISTORY: Chest Pain, eval for PE COMPARISON STUDY: Chest radiograph September 02, 2015. TECHNIQUE: Following IV administration of 119 mL of Optiray, helical axial images of the chest were o btained utilizing the pulmonary embolus protocol. Maximal intensity projections and sagittal and cor onal reformats were viewed on an independent 3D workstation. IV contrast was administered without co mplication. Automated exposure control was utilized for the study. A dose lowering technique was ut ilized adhering to the principles of ALARA. CT DOSE: 398.78 mGy.cm FINDINGS: No pulmonary emboli are identified. There is no thoracic aortic dissection. Size of the he art is normal. There is no pericardial effusion. No enlarged thoracic lymph nodes are noted. There is evidence for previous a granulomatous process with calcified thoracic lymph nodes and calcified gran ulomas within the lungs. There is a small hiatal hernia. Biapical scarring is noted. There is no pneu mothorax or pleural effusion. There is no consolidation to suggest pneumonia. A left adrenal nodule i s unchanged since prior CT. This is benign. IMPRESSION: 1. No pulmonary emboli identified. 2. No acute process within the chest. 3. Small hiatal hernia. ACT 112: Negative or not required by law. Electronically signed by: Km Tineo M.D. 09/18/2020 7:30 AM
[2020-09-18 07:46] VITALS: O2SAT 99
--- NOTE | 2020-09-18 07:59 | Hospitalist Progress Note ---
Date of Service September 18, 2020 Assessment & Plan (1) Chest pain at rest: (2) Family history of ischemic heart disease: (3) Dyslipidemia: (4) HTN (hypertension): Plan: This is a 74-year-old female who presents with chest pain. 1. Chest pain: Rule out acute coronary syndrome. EKG shows Q-waves in lateral leads. Troponin x2 negative. Currently asymptomatic. She also had shortness of breath on exertion and CT of chest was unremarkable. Echocardiogram obtained -left ventricle is normal in size. There is borderline concentric LVH. The left ventricular wall motion is normal. EF 65 to 70%. Diastolic dysfunction, grade 2. There is no significant valvular disease. Cardiology also consulted for further recommendation. Per cardiology, patient has atypical chest discomfort possibly secondary to costochondritis. Cardiac work-up unremarkable so far in the hospital. Recommend outpatient nuclear stress test 2. History of hypertension: Continue her amlodipine, lisinopril. We will monitor the blood pressure. 3. History of bipolar disorder: Continue her Topamax and bupropion. 4. Hyperlipidemia: Continue statin. 5. Hypothyroidism: Continue Synthroid. 6. Obstructive sleep apnea: On CPAP at bedtime. 7. Deep venous thrombosis prophylaxis: Sequential compression devices for now. DISPOSITION: Observed in [place]. Plan to discharge home today, close follow- up with PCP and cardiology. Admission and Anticipated Discharge Date Admission Date: September 17, 2020 Subjective Patient seen in follow-up of chest pain currently resting in bed in no acute distress denies any chest pain, chest discomfort or shortness of breath reports that yesterday she had significant discomfort especially with movement No fevers, chills, dizziness or lightheadedness Seen by cardiology, discussed cardiac work-up in the hospital and outpatient follow-up Patient is eager to be discharged Review of Systems Review of Systems: All systems reviewed & are unremarkable except as noted in Subjective Physical Exam Physical Exam: GENERAL: The patient is of moderate build, not in acute distress. HEENT: NC/AT, Pupils equal, round and reactive to light. Oral mucosa moist. NECK: No JVD. No neck masses. No carotid bruits. CARDIOVASCULAR: S1 and S2 heard, regular rate and rhythm. No murmur, no gallop. RESPIRATORY: Normal AP diameter. No accessory muscle use. No wheezing, no crackles. ABDOMEN: Soft, bowel sounds present, nontender, no distention. NEURO: Alert oriented x3, no facial symmetry, speech fluent, moves extremities EXTREMITIES: Some pedal edema present, no erythema seen. Results & Data Results & Data ([facility]) Vital Signs (Past 12 Hours) Vital Signs Temp Pulse Pulse Resp BP BP BP 09/18/20 07:50 79 09/18/20 07:00 36.7 C 80 18 121/67 09/18/20 01:35 36.8 C 102 H 18 158/89 H 09/18/20 01:29 36.8 C 102 H 18 158/89 H 09/18/20 01:00 98 H 19 146/69 H 09/18/20 00:30 101 H 20 134/67 09/18/20 00:00 102 H 21 135/72 09/17/20 23:30 101 H 17 149/83 H 09/17/20 23:00 104 H 13 151/81 H 09/17/20 22:30 96 H 17 137/78 09/17/20 21:30 93 H 15 137/84 09/17/20 21:24 09/17/20 20:49 91 H 15 154/76 H 09/17/20 20:37 36.5 C 117 H 18 160/87 H Pulse Ox 09/18/20 07:50 09/18/20 07:00 99 09/18/20 01:35 98 09/18/20 01:29 98 09/18/20 01:00 97 09/18/20 00:30 99 09/18/20 00:00 98 09/17/20 23:30 99 09/17/20 23:00 99 09/17/20 22:30 98 09/17/20 21:30 99 09/17/20 21:24 99 09/17/20 20:49 100 09/17/20 20:37 98 Laboratory Results 09/18/20 09/18/20 09/17/20 Range/Units 05:18 05:18 23:36 WBC 7.41 (4.8-10.8) K/uL RBC 5.03 (4.2-5.4) M/uL Hgb 14.6 (12.0-16.0) g/dL Hct 46.0 (37-47) % MCV 91.5 (80-100) fL MCH 29.0 (25-34) pg MCHC 31.7 L (32-36) g/dL RDW Std Deviation 44.9 (36.4-46.3) fL RDW Coeff of Himanshu 13.6 (11.5-14.5) % Plt Count 164 (130-400) K/uL MPV 12.2 H (7.4-10.4) fL Immature Gran % (Auto) 0.4 % Neut % (Auto) 61.9 % Lymph % (Auto) 22.0 % Grand % (Auto) 12.0 % Eos % (Auto) 3.2 % Baso % (Auto) 0.5 % Neut # (Auto) 4.58 (1.4-6.5) K/uL Lymph # (Auto) 1.63 (1.2-3.4) K/uL Grand # (Auto) 0.89 H (0.11-0.59) K/uL Eos # (Auto) 0.24 (0-0.5) K/uL Baso # (Auto) 0.04 (0-0.2) K/uL Immature Gran # (Auto) 0.03 H (0.00-0.02) K/uL APTT (21.0-31.0) Seconds PTT Ratio Sodium 140 (136-145) mmol/L Potassium 3.7 (3.5-5.1) mmol/L Chloride 113 H (98-107) mmol/L Carbon Dioxide 22 (21-32) mmol/L Anion Gap 5.0 (3-11) BUN 18 (7-18) mg/dl Creatinine 0.58 L (0.6-1.2) mg/dl Est Cr Clr Drug Dosing 95.9 Est GFR ( Amer) 106.0 ml/min Est GFR (Non-Af Amer) 91.4 ml/min BUN/Creatinine Ratio 31.3 H (10-20) Glucose 96 (70-99) mg/dl Calcium 9.2 (8.5-10.1) mg/dl Magnesium 2.7 H (1.8-2.4) mg/dl Total Bilirubin (0.2-1) mg/dl AST (15-37) U/L ALT (12-78) U/L Alkaline Phosphatase (45-117) U/L Troponin I < 0.015 (0-0.045) ng/ml Total Protein (6.4-8.2) gm/dl Albumin (3.4-5.0) gm/dl Globulin (2.5-4.0) gm/dl Albumin/Globulin Ratio (0.9-2) Lipase (73-393) U/L COVID-19 Eval Order SARS-CoV-2 (PCR) NEGATIVE (Negative) 09/17/20 09/17/20 09/17/20 Range/Units 23:36 20:58 20:58 WBC (4.8-10.8) K/uL RBC (4.2-5.4) M/uL Hgb (12.0-16.0) g/dL Hct (37-47) % MCV (80-100) fL MCH (25-34) pg MCHC (32-36) g/dL RDW Std Deviation (36.4-46.3) fL RDW Coeff of Himanshu (11.5-14.5) % Plt Count (130-400) K/uL MPV (7.4-10.4) fL Immature Gran % (Auto) % Neut % (Auto) % Lymph % (Auto) % Grand % (Auto) % Eos % (Auto) % Baso % (Auto) % Neut # (Auto) (1.4-6.5) K/uL Lymph # (Auto) (1.2-3.4) K/uL Grand # (Auto) (0.11-0.59) K/uL Eos # (Auto) (0-0.5) K/uL Baso # (Auto) (0-0.2) K/uL Immature Gran # (Auto) (0.00-0.02) K/uL APTT 24.0 (21.0-31.0) Seconds PTT Ratio 0.9 Sodium 140 (136-145) mmol/L Potassium (3.5-5.1) mmol/L Chloride 112 H (98-107) mmol/L Carbon Dioxide 24 (21-32) mmol/L Anion Gap 5.0 (3-11) BUN 17 (7-18) mg/dl Creatinine 0.75 (0.6-1.2) mg/dl Est Cr Clr Drug Dosing Not Reportable Est GFR ( Amer) 91.7 ml/min Est GFR (Non-Af Amer) 79.1 ml/min BUN/Creatinine Ratio 22.5 H (10-20) Glucose 93 (70-99) mg/dl Calcium 9.0 (8.5-10.1) mg/dl Magnesium (1.8-2.4) mg/dl Total Bilirubin 0.2 (0.2-1) mg/dl AST (15-37) U/L ALT 22 (12-78) U/L Alkaline Phosphatase 129 H (45-117) U/L Troponin I < 0.015 (0-0.045) ng/ml Total Protein 7.7 (6.4-8.2) gm/dl Albumin 3.7 (3.4-5.0) gm/dl Globulin 4.0 (2.5-4.0) gm/dl Albumin/Globulin Ratio 0.9 (0.9-2) Lipase 138 (73-393) U/L COVID-19 Eval Order Covid19 at [facility] SARS-CoV-2 (PCR) (Negative) 09/17/20 Range/Units 20:58 WBC 7.76 (4.8-10.8) K/uL RBC 4.29 (4.2-5.4) M/uL Hgb 13.0 (12.0-16.0) g/dL Hct 40.1 (37-47) % MCV 93.5 (80-100) fL MCH 30.3 (25-34) pg MCHC 32.4 (32-36) g/dL RDW Std Deviation 46.4 H (36.4-46.3) fL RDW Coeff of Himanshu 13.6 (11.5-14.5) % Plt Count 227 (130-400) K/uL MPV 11.4 H (7.4-10.4) fL Immature Gran % (Auto) 0.3 % Neut % (Auto) 63.2 % Lymph % (Auto) 21.3 % Grand % (Auto) 11.0 % Eos % (Auto) 3.2 % Baso % (Auto) 1.0 % Neut # (Auto) 4.91 (1.4-6.5) K/uL Lymph # (Auto) 1.65 (1.2-3.4) K/uL Grand # (Auto) 0.85 H (0.11-0.59) K/uL Eos # (Auto) 0.25 (0-0.5) K/uL Baso # (Auto) 0.08 (0-0.2) K/uL Immature Gran # (Auto) 0.02 (0.00-0.02) K/uL APTT (21.0-31.0) Seconds PTT Ratio Sodium (136-145) mmol/L Potassium (3.5-5.1) mmol/L Chloride (98-107) mmol/L Carbon Dioxide (21-32) mmol/L Anion Gap (3-11) BUN (7-18) mg/dl Creatinine (0.6-1.2) mg/dl Est Cr Clr Drug Dosing Est GFR ( Amer) ml/min Est GFR (Non-Af Amer) ml/min BUN/Creatinine Ratio (10-20) Glucose (70-99) mg/dl Calcium (8.5-10.1) mg/dl Magnesium (1.8-2.4) mg/dl Total Bilirubin (0.2-1) mg/dl AST (15-37) U/L ALT (12-78) U/L Alkaline Phosphatase (45-117) U/L Troponin I (0-0.045) ng/ml Total Protein (6.4-8.2) gm/dl Albumin (3.4-5.0) gm/dl Globulin (2.5-4.0) gm/dl Albumin/Globulin Ratio (0.9-2) Lipase (73-393) U/L COVID-19 Eval Order SARS-CoV-2 (PCR) (Negative) Medications Administered Current Inpatient Medications Acetaminophen (Acetaminophen 325 Mg Tab) 650 mg PO Q4H PRN PRN Reason: Pain or Fever Stop: 10/18/20 01:25 Amlodipine Besylate (Amlodipine Besylate 5 Mg Tab) 10 mg PO DAILY [facility] Stop: 10/18/20 08:59 Ascorbic Acid (Ascorbic Acid 500 Mg Tab) 1,000 mg PO DAILY [facility] Stop: 10/18/20 08:59 Bupropion HCl (Bupropion Xl 300 Mg Tabcr) 300 mg PO QAM [facility] Stop: 10/18/20 08:59 Cyanocobalamin (Cyanocobalamin 500 Mcg Tablet (Vitamin B-12)) 1,000 mcg PO DAILY [facility]; Protocol Stop: 10/18/20 08:59 Enoxaparin Sodium (Enoxaparin Inj 40 Mg/0.4 Ml Syr) 40 mg SQ QAM [facility] Stop: 10/18/20 08:59 Lactobacillus Acidoph/Casei/Rhamnos (Advanced Probiotic 1250 Mg Capsule) 2 cap PO DAILY [facility]; Protocol Stop: 10/18/20 08:59 Levothyroxine Sodium (Levothyroxine Sodium 75 Mcg Tablet) 75 mcg PO DAILYBB [facility] Stop: 10/18/20 06:29 Last Admin: 09/18/20 05:58 Dose: 75 mcg Documented by: Lisinopril (Lisinopril 20 Mg Tab) 20 mg PO QPM [facility] Stop: 10/18/20 20:59 Miscellaneous (Cromolyn: Order Awaiting Action) 1 ea N/A QS [facility] Stop: 10/18/20 07:59 Miscellaneous (Restasis: Order Awaiting Action) 1 ea N/A QS [facility] Stop: 10/18/20 07:59 Nitroglycerin (Nitroglycerin Sl 0.4 Mg/Tab Tab) 0.4 mg SL UD PRN PRN Reason: Chest Pain Stop: 10/18/20 01:25 Rosuvastatin Calcium (Rosuvastatin Calcium 5 Mg Tab) 5 mg PO QPM [facility] Stop: 10/18/20 20:59 Topiramate (Topiramate 100 Mg Tab) 200 mg PO QPM [facility] Stop: 10/18/20 20:59 Vitamin D (Cholecalciferol 1,000 Units 25 Mcg Tab) 5,000 units PO DAILY [facility] Stop: 10/18/20 08:59
[2020-09-18] MEDS ORDERED: RESTASIS: ORDER AWAITING ACTION SCH (08:00)
[2020-09-18] MEDS ORDERED: [UNRECOGNIZED DRUG - OTHER] SCH (08:00)
[2020-09-18] MEDS ORDERED: ASCORBIC ACID 500 MG TAB PO SCH (09:00)
[2020-09-18] MEDS ORDERED: amLODIPine BESYLATE 5 MG TAB PO SCH (09:00)
[2020-09-18] MEDS ORDERED: ADVANCED PROBIOTIC 1250 MG CAPSULE PO SCH (09:00)
[2020-09-18] MEDS ORDERED: lisinopril 20 MG TAB PO SCH ×2 (09:00→21:00)
[2020-09-18] MEDS ORDERED: ENOXAPARIN INJ 40 MG/0.4 ML SYR SQ SCH (09:00)
[2020-09-18] MEDS ORDERED: buPROPion XL 300 MG TABCR PO SCH (09:00)
[2020-09-18] MEDS ORDERED: CYANOCOBALAMIN 500 MCG TABLET (VITAMIN B-12) PO SCH (09:00)
[2020-09-18] MEDS ORDERED: CHOLECALCIFEROL 1,000 UNITS 25 MCG TAB PO SCH (09:00)
[2020-09-18 09:02] LABS: Appearance Urine Clear (Clear); Bacteria Urine Automated Negative (Negative); Bilirubin Urine Negative (Negative); Blood Urine Negative (Negative); Color Urine Yellow; Glucose Urine UA Negative (Negative); Ketones Urine Negative (Negative); Leukocyte Esterase Urine 1+ (Negative); Nitrite Urine Negative (Negative); Protein Urine Negative (Negative); RBC Urine Automated 0-4 /hpf (0-4); Specific Gravity Urine 1.016 (1.000-1.030); Urobilinogen Urine Negative (Negative)
--- NOTE | 2020-09-18 09:54 | Cardiology Consultation ---
Date of Consultation September 18, 2020 Assessment & Plan (1) Chest pain at rest: (2) HTN (hypertension): (3) Dyslipidemia: (4) Family history of ischemic heart disease: 74-year-old female admitted with atypical chest discomfort. EKGs are without acute change. Troponin negative x2. Resting echocardiography shows preserved LV systolic function without wall motion abnormality or significant valvular heart disease. Telemetry thus far has been benign. Options of management discussed. Patient notes inability to ambulate adequately for exercise stress testing as well as past poor tolerance to dobutamine stress testing in 2016. Patient is anxious for discharge and will agree with referral for outpatient nuclear stress testing. General measures advised. Supervising Physician Co-Signing Physician Notes Patient seen and chart reviewed. Symptoms atypical for angina with negative cardiac evaluation to date. More likely consistent with costochondritis by description. Will complete full evaluation as noted above with outpatient nuclear stress study. No adjustments in cardiac medications. Blood pressures will need to be followed as an outpatient given mild elevation during this admission History of Present Illness Reason for Consultation: Chest pain Requesting Physician: Sid Attending Physician: Amisha History of Present Illness History of Present Illness: Ms. Rascon is a 74-year-old female who was admitted to [facility] on September 17, 2020, presenting to the ER with chest pain, shortness of breath, and nausea. The patient describes experiencing some mild shortness of breath when walking from the kitchen to the living room. While sitting in the chair after walking into the living room she experienced a sharp left-sided chest/breast discomfort, 4-5 out of 10 in severity, nonradiating pain that was aggravated by movement of her torso. She notes that it specifically hurts more to move back and thus she was afraid to move. She notes similar symptoms in the past, attributed to anxiety. Due to the chest pain as well as a preceding shortness of breath and some mild nausea, the patient summoned her daughter via telephone and then presented to the ER for further evaluation. EKG in the ER revealed a sinus tachycardia with ventricular rate of 108 bpm, possible left atrial enlargement, possible lateral infarct. EKG this morning reveals sinus rhythm with right axis deviation, early repolarization type changes. When these EKGs are compared to prior EKGs, there appears to be no significant change. Troponin less than 0.015x2. Resting echocardiography revealed normal LV size, function, and wall motion. Borderline concentric LVH noted. EF 65 to 70%. Grade 2 diastolic dysfunction observed. No significant valvular disease noted. Continuous telemetry monitoring demonstrates sinus rhythm ranging in the 70s to 90s, currently 86 bpm. Patient denies prior cardiac history other than palpitations (documented to occur in association with sensed atrial ectopy and a possible heart murmur as a child.Patient specifically denies history of CAD, [place], CHF, arrhythmia, rheumatic fever, or scarlet fever. Past Medical and Surgical History Hypertension Dyslipidemia Obstructive sleep apnea, CPAP therapy Breast cancer status post lumpectomy, radiation Bipolar disorder GERD IBS Diverticulosis Multinodular goiter Daphne's thyroiditis Palpitations, sensed ectopy. Total knee replacement Partial hysterectomy Tonsillectomy Family History: Mother suffered a minor heart attack at the age of 62, passing at the age of 63 with recurrent breast cancer. Father had hypertension, passing with what sounds like a PE following prostate surgery in 1967. One brother, committed suicide at the age of 45. Social History: Non-smoker. Rare alcohol. Retired in January 2020, [employer], reference librarian. Originally from [place]. Moved to [place] to be close to her grandchildren Allergies Allergy/AdvReac Type Severity Reaction Status Date / Time Cephalosporins Allergy Unknown Hives Verified 09/17/20 22:15 codeine Allergy Unknown Unknown Verified 09/17/20 22:15 erythromycin base Allergy Unknown Unknown Verified 09/17/20 22:15 Sulfa (Sulfonamide Allergy Unknown Hives Verified 09/17/20 22:15 Antibiotics) Influenza Virus Vaccines Allergy Anaphylaxis Verified 09/18/20 01:30 oxycodone AdvReac Severe hallucinati Verified 09/17/20 22:15 on azithromycin AdvReac Nausea Verified 09/18/20 01:31 Home Medications Medication Instructions Recorded Confirmed Type bupropion HCl 300 mg 24 hr tablet, 300 mg PO QAM 12/26/18 09/17/20 History extended release cyclosporine 0.05 % eye drops in a 1 drops OP Q12H 12/26/18 09/17/20 History dropperette (Restasis) mecobalamin (vitamin B12) 1,000 1,000 mcg PO DAILY 07/18/19 09/17/20 History mcg chewable tablet rosuvastatin 5 mg tablet 5 mg PO QPM 07/18/19 09/17/20 History cromolyn 5.2 mg/spray (4 %) nasal 1 sprays INTNAS DAILY ml 07/20/19 09/17/20 History spray (Nasalcrom) amlodipine 10 mg tablet 10 mg PO DAILY 07/01/20 09/17/20 History lisinopril 20 mg tablet 20 mg PO DAILY 07/01/20 09/17/20 History Lactobacillus acidophilus 10 10,000 mmu cells PO DAILY 09/17/20 09/17/20 History billion cell capsule (Probiotic) Nmn 125 mg PO DAILY 09/17/20 09/17/20 History acetaminophen 650 mg 650 mg PO Q12H PRN 09/17/20 09/17/20 History tablet,extended release ascorbic acid (vitamin C) 1,000 mg 1 g PO DAILY 09/17/20 09/17/20 History tablet (Vitamin C) cholecalciferol (vitamin D3) 125 125 mcg PO DAILY 09/17/20 09/17/20 History mcg (5,000 unit) tablet (Vitamin D3) levothyroxine 75 mcg tablet 75 mcg PO DAILYBB 09/17/20 09/17/20 History nettle-pygeum africanum 300 mg-25 1 cap PO DAILY 09/17/20 09/17/20 History mg capsule topiramate 200 mg tablet 200 mg PO QPM 09/17/20 09/17/20 History Patient History Medical History Adrenal gland cyst Bipolar disorder Breast cancer 10 YEARS AGO - LUMPECTOMY + RADIATION Chest pain at rest Dyslipidemia Family history of ischemic heart disease GERD (gastroesophageal reflux disease) Hearing deficit BL GARCIA Hepatic cyst History of skin cancer 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 HLD (hyperlipidemia) HTN (hypertension) HTN (hypertension) Hypothyroidism Kidney stones Limb alert care status Restricted RUE Osteoarthritis Osteopenia Sleep apnea CPAP Surgical History H/O lithotripsy Right URS, laser lithotripsy, and stent placement 08/13/19 History of colonoscopy History of D&C History of partial hysterectomy History of removal of cyst benign cysts removed from breast x 3 History of right knee joint replacement History of tonsillectomy Status post breast lumpectomy Rt Family History Family/Other Coronary heart disease Cancer Hypertension Other No family history of adverse response to anesthesia Social History Smoking Status: Never smoker Second Hand Exposure: No; Hx Alcohol Use: No Hx Substance Use: No Preferred Language: Rwandan Communication Ability: Effective Assigner Required: No Beliefs That Will Affect Care: None marital status: Current Living Situation: Alone current occupational status: retired Other Information That Helps Us Care for You: No Feels Safe at Home: Yes Safety Concerns: Feels Safe At This Time Assistive Devices: CPAP Review of Systems Review of Systems: Complete Review of Systems: Constitutional: No change in weight. No fevers, sweats, or chills. Eyes: Dry eyes. Cataracts. No amaurosis fugax. No glaucoma. HENT: Hard of hearing. Pulmonary: + Sleep apnea. No history of pulmonary embolism, COPD or asthma. Cardiac: See above. GI/Abd: See above. GERD. Endoscopy 2-3 weeks ago. No dysphagia. No kidney issues. No liver problems. Vascular: Denies history of claudication, AAA, or carotid artery disease. Hematologic: No coagulation disorder, anemia, or abnormal bleeding. Musculoskeletal: Arthritis. Ambulation is via a cane. See above. Skin: Negative. Neurologic: Normal balance. No TIA or CVA symptoms. No syncope or near syncope. Female: See above. Endocrine: See above. Complete Review of Systems is as stated above or negative. Physical Exam Physical Exam: General: A&Ox3. NAD. HENT: Normocephalic. Atraumatic. Eyes: PER. Conjunctiva pink, sclera clear. Neck: No carotid bruits. No JVD. No HJR. Heart: RRR. No murmur. No rub. No gallop. PMI is nondisplaced. Lungs: Clear to auscultation. Abdomen: +BS. Soft. Nontender. No masses or organomegaly. Extremities: No clubbing, cyanosis, or edema. Limited neurological examination is without focal deficits. Pulses: Posterior tibial=2/4. Results & Data ([facility]) Vital Signs (Past 12 Hours) Vital Signs Temp Pulse Pulse Resp BP BP BP 09/18/20 07:50 79 09/18/20 07:00 36.7 C 80 18 121/67 09/18/20 01:35 36.8 C 102 H 18 158/89 H 09/18/20 01:29 36.8 C 102 H 18 158/89 H 09/18/20 01:00 98 H 19 146/69 H 09/18/20 00:30 101 H 20 134/67 09/18/20 00:00 102 H 21 135/72 09/17/20 23:30 101 H 17 149/83 H 09/17/20 23:00 104 H 13 151/81 H 09/17/20 22:30 96 H 17 137/78 09/17/20 21:30 93 H 15 137/84 09/17/20 21:24 09/17/20 20:49 91 H 15 154/76 H 09/17/20 20:37 36.5 C 117 H 18 160/87 H Pulse Ox 09/18/20 07:50 09/18/20 07:00 99 09/18/20 01:35 98 09/18/20 01:29 98 09/18/20 01:00 97 09/18/20 00:30 99 09/18/20 00:00 98 09/17/20 23:30 99 09/17/20 23:00 99 09/17/20 22:30 98 09/17/20 21:30 99 09/17/20 21:24 99 09/17/20 20:49 100 09/17/20 20:37 98 Laboratory Results Laboratory Results - last 24 hr 09/17/20 09/17/20 09/17/20 20:58 20:58 20:58 WBC 7.76 RBC 4.29 Hgb 13.0 Hct 40.1 MCV 93.5 MCH 30.3 MCHC 32.4 RDW Std Deviation 46.4 H RDW Coeff of Himanshu 13.6 Plt Count 227 MPV 11.4 H Immature Gran % (Auto) 0.3 Neut % (Auto) 63.2 Lymph % (Auto) 21.3 Pacific % (Auto) 11.0 Eos % (Auto) 3.2 Baso % (Auto) 1.0 Neut # (Auto) 4.91 Lymph # (Auto) 1.65 Pacific # (Auto) 0.85 H Eos # (Auto) 0.25 Baso # (Auto) 0.08 Immature Gran # (Auto) 0.02 APTT 24.0 PTT Ratio 0.9 Sodium 140 Potassium Chloride 112 H Carbon Dioxide 24 Anion Gap 5.0 BUN 17 Creatinine 0.75 Est Cr Clr Drug Dosing Not Reportable Est GFR ( Amer) 91.7 Est GFR (Non-Af Amer) 79.1 BUN/Creatinine Ratio 22.5 H Glucose 93 Calcium 9.0 Magnesium Total Bilirubin 0.2 AST ALT 22 Alkaline Phosphatase 129 H Troponin I < 0.015 Total Protein 7.7 Albumin 3.7 Globulin 4.0 Albumin/Globulin Ratio 0.9 Lipase 138 TSH Urine Color Urine Appearance Urine pH Ur Specific Cumby Urine Protein Urine Glucose (UA) Urine Ketones Urine Blood Urine Nitrite Urine Bilirubin Urine Urobilinogen Ur Leukocyte Esterase Urine WBC (Auto) Urine RBC (Auto) U Hyaline Cast (Auto) U Epithel Cells (Auto) Urine Bacteria (Auto) COVID-19 Eval Order SARS-CoV-2 (PCR) 09/17/20 09/17/20 09/18/20 23:36 23:36 05:18 WBC 7.41 RBC 5.03 Hgb 14.6 Hct 46.0 MCV 91.5 MCH 29.0 MCHC 31.7 L RDW Std Deviation 44.9 RDW Coeff of Himanshu 13.6 Plt Count 164 MPV 12.2 H Immature Gran % (Auto) 0.4 Neut % (Auto) 61.9 Lymph % (Auto) 22.0 Pacific % (Auto) 12.0 Eos % (Auto) 3.2 Baso % (Auto) 0.5 Neut # (Auto) 4.58 Lymph # (Auto) 1.63 Pacific # (Auto) 0.89 H Eos # (Auto) 0.24 Baso # (Auto) 0.04 Immature Gran # (Auto) 0.03 H APTT PTT Ratio Sodium Potassium Chloride Carbon Dioxide Anion Gap BUN Creatinine Est Cr Clr Drug Dosing Est GFR ( Amer) Est GFR (Non-Af Amer) BUN/Creatinine Ratio Glucose Calcium Magnesium Total Bilirubin AST ALT Alkaline Phosphatase Troponin I Total Protein Albumin Globulin Albumin/Globulin Ratio Lipase TSH Urine Color Urine Appearance Urine pH Ur Specific Cumby Urine Protein Urine Glucose (UA) Urine Ketones Urine Blood Urine Nitrite Urine Bilirubin Urine Urobilinogen Ur Leukocyte Esterase Urine WBC (Auto) Urine RBC (Auto) U Hyaline Cast (Auto) U Epithel Cells (Auto) Urine Bacteria (Auto) COVID-19 Eval Order Covid19 at [facility] SARS-CoV-2 (PCR) NEGATIVE 09/18/20 09/18/20 09/18/20 05:18 05:18 Unknown WBC RBC Hgb Hct MCV MCH MCHC RDW Std Deviation RDW Coeff of Himanshu Plt Count MPV Immature Gran % (Auto) Neut % (Auto) Lymph % (Auto) Pacific % (Auto) Eos % (Auto) Baso % (Auto) Neut # (Auto) Lymph # (Auto) Pacific # (Auto) Eos # (Auto) Baso # (Auto) Immature Gran # (Auto) APTT PTT Ratio Sodium 140 Potassium 3.7 Chloride 113 H Carbon Dioxide 22 Anion Gap 5.0 BUN 18 Creatinine 0.58 L Est Cr Clr Drug Dosing 95.9 Est GFR ( Amer) 106.0 Est GFR (Non-Af Amer) 91.4 BUN/Creatinine Ratio 31.3 H Glucose 96 Calcium 9.2 Magnesium 2.7 H Total Bilirubin AST ALT Alkaline Phosphatase Troponin I < 0.015 Total Protein Albumin Globulin Albumin/Globulin Ratio Lipase TSH 0.963 Urine Color Yellow Urine Appearance Clear Urine pH 7.0 Ur Specific Cumby 1.016 Urine Protein Negative Urine Glucose (UA) Negative Urine Ketones Negative Urine Blood Negative Urine Nitrite Negative Urine Bilirubin Negative Urine Urobilinogen Negative Ur Leukocyte Esterase 1+ H Urine WBC (Auto) 1-5 Urine RBC (Auto) 0-4 U Hyaline Cast (Auto) 1-5 U Epithel Cells (Auto) 5-10 H Urine Bacteria (Auto) Negative COVID-19 Eval Order SARS-CoV-2 (PCR)
[2020-09-18 11:30] VITALS: PULSE 83; TEMP 98.4
--- NOTE | 2020-09-18 12:23 | Discharge Summary ---
Date of Service September 18, 2020 Admission HPI Per Admitting Provider A 74-year-old female with past medical history significant for hyperlipidemia; history of multinodular goiter; history of Daphne's thyroiditis; obstructive sleep apnea, on CPAP; irritable bowel syndrome; GERD; history of actinic keratosis; bipolar II disorder; history of carcinoma of the breast; history of nonmelanoma skin cancer, who lives alone, presents with chest pain and shortness of breath. Initially, she had some shortness of breath while ambulating and she sat on the chair and around 7:30 p.m. she noticed left-sided chest pain, some pressure-like feeling of about 5/10 in severity, no radiation. Around 8:30 p.m., she called her daughter and she was brought into the hospital. Currently, the patient is chest pain free. In the ER, they tried to ambulate her and again she felt short of breath. CT of the chest was done, there was no PE. Because of ongoing symptoms, called for admission. Currently, resting comfortably and hemodynamically stable. Currently, no shortness of breath. When she had symptoms, she felt nausea, that has improved now. She has some mild headache, no dizziness, no blurred visions, no earache. Has some mild runny nose, but that is chronic. Has chronic dry cough on and off for several months. She has worked up for her cough with Prilosec for a couple of months, didn't helped, and she states she also had endoscopy, which was also unremarkable. Denies any abdominal pain. Normal bowel movements. No blood in the stool or black stools. She says she is currently frequently micturating, but denies any hematuria or burning micturition. She has chronic mild swelling in the lower extremity. Since she had her right knee arthroplasty, she is using a cane to ambulate. Appetite is okay. No dysphagia. Admission Exam Per Admitting Provider GENERAL: The patient is of moderate build, not in acute distress. VITAL SIGNS: Temperature 36.5, pulse 102, respiratory rate 21, blood pressure 135/72, oxygen 98% on room air. HEENT: Pupils equal, round and reactive to light. Oral mucosa moist. NECK: No JVD. No neck masses. No carotid bruits. CARDIOVASCULAR: S1 and S2 heard, regular rate and rhythm. No murmur, no gallop. RESPIRATORY SYSTEM: Normal AP diameter. No accessory muscle use. No wheezing, no crackles. ABDOMEN: Soft, bowel sounds present, nontender, no distention. CENTRAL NERVOUS SYSTEM: Cranial nerves II-XII grossly intact, nonfocal. EXTREMITIES: Some pedal edema present, no erythema seen. Principal Diagnosis Atypical chest pain, possibly secondary to costochondritis Discharge Exam GENERAL: The patient is of moderate build, not in acute distress. HEENT: NC/AT, Pupils equal, round and reactive to light. Oral mucosa moist. NECK: No JVD. No neck masses. No carotid bruits. CARDIOVASCULAR: S1 and S2 heard, regular rate and rhythm. No murmur, no g allop. RESPIRATORY: Normal AP diameter. No accessory muscle use. No wheezing, no crackles. ABDOMEN: Soft, bowel sounds present, nontender, no distention. NEURO: Alert oriented x3, no facial symmetry, speech fluent, moves extremities EXTREMITIES: Some pedal edema present, no erythema seen. Discharge Data Allergies Allergy/AdvReac Type Severity Reaction Status Date / Time Cephalosporins Allergy Unknown Hives Verified 09/17/20 22:15 codeine Allergy Unknown Unknown Verified 09/17/20 22:15 erythromycin base Allergy Unknown Unknown Verified 09/17/20 22:15 Sulfa (Sulfonamide Allergy Unknown Hives Verified 09/17/20 22:15 Antibiotics) Influenza Virus Vaccines Allergy Anaphylaxis Verified 09/18/20 01:30 oxycodone AdvReac Severe hallucinati Verified 09/17/20 22:15 on azithromycin AdvReac Nausea Verified 09/18/20 01:31 Consultations 09/17/20 23:47 ED Decision to Admit Stat 09/18/20 08:00 Consult Cardiology Routine Ordered Studies 09/17/20 20:54 CT angio chest PE protocol Urgent FINDINGS: No pulmonary emboli are identified. There is no thoracic aortic dissection. Size of the heart is normal. There is no pericardial effusion. No enlarged thoracic lymph nodes are noted. There is evidence for previous a granulomatous process with calcified thoracic lymph nodes and calcified granulomas within the lungs. There is a small hiatal hernia. Biapical scarring is noted. There is no pneumothorax or pleural effusion. There is no consolidation to suggest pneumonia. A left adrenal nodule is unchanged since prior CT. This is benign. IMPRESSION: 1. No pulmonary emboli identified. 2. No acute process within the chest. 3. Small hiatal hernia. Hospital Course (1) Chest pain at rest: (2) Family history of ischemic heart disease: (3) Dyslipidemia: (4) HTN (hypertension): This is a 74-year-old female who presents with chest pain. 1. Chest pain: Rule out acute coronary syndrome. EKG shows Q-waves in lateral leads. Troponin x2 negative. Currently asymptomatic. She also had shortness of breath on exertion and CT of chest was unremarkable. Echocardiogram obtained -left ventricle is normal in size. There is borderline concentric LVH. The left ventricular wall motion is normal. EF 65 to 70%. Diastolic dysfunction, grade 2. There is no significant valvular disease. Cardiology also consulted for further recommendation. Per cardiology, patient has atypical chest discomfort possibly secondary to costochondritis. Cardiac work-up unremarkable so far in the hospital. Recommend outpatient nuclear stress test 2. History of hypertension: Continue her amlodipine, lisinopril. We will monitor the blood pressure. 3. History of bipolar disorder: Continue her Topamax and bupropion. 4. Hyperlipidemia: Continue statin. 5. Hypothyroidism: Continue Synthroid. 6. Obstructive sleep apnea: On CPAP at bedtime. 7. Deep venous thrombosis prophylaxis: Sequential compression devices for now. DISPOSITION: Observed in [facility]. Plan to discharge home today, close follow- up with PCP and cardiology. Total Time Total Time Spent Total Time Spent (In Minutes): 35 Discharge Plan Discharge Items Patient Disposition: Home - Self-Care Reason For Visit: CHEST PAIN Discharge Diagnosis: Atypical chest pain, possibly secondary to costochondritis Activity: Per Instructions section Non-emergency contact: Primary Care Provider and Loader Technician Call non-emergency contact if: you have any medication questions and your symptoms worsen Follow-up/Referrals: Ilda Guzman DO [Primary Care Provider] - Diet: Heart Healthy Addtl Attending Provider Instructions: Follow-up with your primary care doctor within 1 week. You will also need to follow up with cardiology for nuclear stress test, you will be contacted about this appointment. In the meantime, it is recommended that you try to get some rest, use Tylenol 1000 mg 3 times a day as needed for pain/discomfort. You can also use heat or ice packs. Pending Studies at Discharge: No Stand-Alone Forms: [employer], Smoking Cessation Medications and DC Order Prescriptions: Continued cromolyn [Nasalcrom] 5.2 mg/spray (4 %) spray,non-aerosol 1 sprays INTNAS DAILY RF: 0 rosuvastatin 5 mg tablet 5 mg PO QPM RF: 0 mecobalamin (vitamin B12) 1,000 mcg tablet,chewable 1,000 mcg PO DAILY RF: 0 lisinopril 20 mg tablet 20 mg PO DAILY RF: 0 amlodipine 10 mg tablet 10 mg PO DAILY RF: 0 bupropion HCl 300 mg tablet extended release 24 hr 300 mg PO QAM RF: 0 Restasis 0.05 % dropperette 1 drops OP Q12H RF: 0 levothyroxine 75 mcg tablet 75 mcg PO DAILYBB RF: 0 topiramate 200 mg tablet 200 mg PO QPM RF: 0 ascorbic acid (vitamin C) [Vitamin C] 1,000 mg Tablet 1 g PO DAILY RF: 0 cholecalciferol (vitamin D3) [Vitamin D3] 125 mcg (5,000 unit) Tablet 125 mcg PO DAILY RF: 0 nettle-pygeum africanum 300-25 mg Capsule 1 cap PO DAILY RF: 0 acetaminophen [Tylenol Arthritis] 650 mg Tablet Extended Release 650 mg PO Q12H PRN (Reason: Pain) RF: 0 Probiotic 10 billion cell Capsule 10,000 mmu cells PO DAILY RF: 0 Nmn 125 mg PO DAILY RF: 0 Discharge Orders: Discharge Order (Routine); Ordered 09/18/20 Ordered By: Chevy Lion Admission Data Admit Date/Time: 09/17/20 23:57 Attending Provider: Chevy Lion Admit Provider: Monty Lau Primary Care Provider: Ilda Guzman Other Providers: Monty Lau ; Deny Torres ; Tony Pitts ; Darío Chacon ; Yahir Ndiaye ; Erickson Felix ; Song Donato ; Mary Garcia ; Lindsay Deal ; Mariya Ríos ; Chito Valladares ; Jude Willson
[2020-09-18 12:50] VITALS: BP 158/89
[2020-09-18] MEDS ORDERED: ROSUVASTATIN CALCIUM 5 MG TAB PO SCH (21:00)
[2020-09-18] MEDS ORDERED: TOPIRAMATE 100 MG TAB PO SCH (21:00)
--- NOTE | 2020-09-19 18:09 | Electrocardiogram Report ---
Test Reason : Blood Pressure : / mmHG Vent. Rate : 108 BPM Atrial Rate : 108 BPM P-R Int : 162 ms QRS Dur : 080 ms QT Int : 328 ms P-R-T Axes : 070 002 051 degrees QTc Int : 439 ms Sinus tachycardia Possible Left atrial enlargement Possible Lateral infarct , age undetermined Cannot rule out Inferior infarct , age undetermined Abnormal ECG When compared with ECG of 03-SEP-2015 06:21, Vent. rate has increased BY 52 BPM Minimal criteria for Inferior infarct are now Present ST no longer elevated in Anterior leads Confirmed by Noman Firoe ([id number]) on 09/19/2020 6:09:04 PM Referred By: REFERRED SELF Confirmed By:Noman Fiore
--- NOTE | 2020-09-19 18:36 | Electrocardiogram Report ---
Test Reason : Blood Pressure : / mmHG Vent. Rate : 084 BPM Atrial Rate : 084 BPM P-R Int : 170 ms QRS Dur : 086 ms QT Int : 386 ms P-R-T Axes : 097 146 132 degrees QTc Int : 456 ms Suspect arm lead reversal, interpretation assumes no reversal Normal sinus rhythm Increased R/S ratio in V1, consider early transition or posterior infarct Abnormal ECG When compared with ECG of 17-SEP-2020 20:46, Limb lead reversal is now present Confirmed by Noman Fiore ([id number]) on 09/19/2020 6:35:50 PM Referred By: REFERRED SELF Confirmed By:Noman Fiore
== END 2020-09-18 13:27 | disposition home or self-care (01) ==
LOC: 2N 20:37 → ED 20:37 → SUATTDRO 23:57 → 2N 09-18 01:06